=== PATIENT | male | born 1970 | race Caucasian/White ===

== ENCOUNTER 2023-12-27 23:10 | Observation (INO) ==
[2023-12-28] MEDS: SODIUM CHLORIDE 0.9% 1,000 ML IV SCH (00:18)
--- NOTE | 2023-12-28 00:44 | Emergency Department Note ---
Impression & Plan Abdominal pain, Acute appendicitis ED Provider Note ED Provider Note NAME: KANA MUNROE AGE:53 SEX: Male : 1970 ARRIVES VIA: Private vehicle INFORMANT: Patient ED PROVIDER(s): Erlinda Mark DO CHIEF COMPLAINT: Abdominal pain HPI: This is a 53-year-old male presents emergency department due to concern for abdominal pain. Patient states he noticed this evening at home he was feeling unwell and began to develop central abdominal pain across both sides of his abdomen. He states he tried to rest and sip some Mountain Dew. He states he began to notice pain was worse on the right compared to left. He states he feels slightly distended. He denies any recent change in diet or activity, no recent travel, no change in medications. No known sick contacts. He denies fevers or chills, nausea or vomiting. He states early this morning prior to feeling ill he did have a formed stool that appeared [facility] in color compared to normal, no blood was noted. No change in urine. No history of IBS or IBD, no prior abdominal surgeries. PAST MEDICAL HISTORY:See Below PAST SURGICAL HISTORY:See Below FAMILY HISTORY:See Below SOCIAL HISTORY:See Below HOME MEDICATIONS:See Below ALLERGIES:See Below VITALS:See Below PHYSICAL EXAMINATION: GENERAL: alert, well appearing, well nourished, no distress, non-toxic EYE EXAM: normal conjunctiva, PERRL and EOM's grossly intact OROPHARYNX: no exudate, no erythema, lips, buccal mucosa, and tongue normal and mucous membranes are moist NECK: supple, no nuchal rigidity, no adenopathy, non-tender LUNGS: Clear to auscultation. Normal chest wall mechanics, no w/r/r HEART: no murmurs, S1 normal and S2 normal ABDOMEN: abdomen soft, right mid abd tenderness, normo-active bowel sounds, no masses, no rebound or guarding. BACK: Back is symmetrical on inspection and there is no deformity, no midline tenderness, no CVA tenderness. SKIN: no rashes, petechiae, orbruising UPPER EXTREMITIES: upper extremities are grossly normal. FROM, nml pulses b/l. LOWER EXTREMITIES: No pitting edema. FROM, nml pulses b/l. NEURO EXAM: Normal sensorium, cranial nerves II-XII grossly intact, normal speech, no facial droop,nogross weakness of arms, no gross weakness of legs. Gross sensation intact. No ataxia. Vital Signs: reviewed and remarkable Differential Diagnosis: viral syndrome, colitis, appendicitis, renal colic, perf, gi bleed, diverticulitis, sbo, cholecystitis, as well as others were considered MEDICAL DECISION MAKING: This is a 53 yo male who presents to the ER with abdominal pain, right>left which began earlier today. He was afebrile and VS stable. Labs drawn and sent, IV established, EKG performed and interpreted at bedside, and patient placed on telemetry. He was given IVF however denied any medication needed for pain or nausea. He was sent for CT imaging. CAse discussed with Dr. Beckwith in the ER who evaluated the patient at bedside and consented him for surgery. Patient given zosyn preop and was take to the OR. Consultation(s): 0215: Discussed with Dr. Beckwith, gen surg. He evaluated the patient at bedside and will plan to take the patient to the OR. He does request the patient be given zosyn pre operatively. ER Treatment Provided: See below Diagnostics Interpreted By Me: -ECG: sinus bradycardia at 57, nml axis, nml intervals, no acute ST/T wave changes -Cardiac Monitoring: An order was placed for continuous cardiac monitoring. The monitor shows a rate of 56 with sinus bradycardia rhythm. -Laboratory studies: As stated above and show below. -Imaging studies: Ct a/p - no perf, no sbo, ? 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 Required: No Beliefs That Will Affect Care: None Current Living Situation: Spouse Other Information That Helps Us Care for You: No Feels Safe at Home: Yes Safety Concerns: Feels Safe At This Time Assistive Devices: None Allergies Allergies Allergy/AdvReac Type Severity Reaction Status Date / Time No Known Allergies Allergy Unverified 12/28/23 01:06 Home Meds Home Medications Medication Instructions Recorded Confirmed hydrochlorothiazide 12.5 mg tablet 12.5 mg PO DAILY 12/28/23 12/28/23 levothyroxine 125 mcg tablet 125 mcg PO DAILYBB 12/28/23 12/28/23 olmesartan 40 mg tablet 40 mg PO QAM 12/28/23 12/28/23 Previous Rx's Medication Instructions Recorded oxycodone-acetaminophen 5 mg-325 1 tab PO Q6H PRN pain #10 tabs 12/28/23 mg tablet Results & Data (ED) Vital Signs Vital Signs - 24 hr 12/27/23 23:14 12/27/23 23:36 12/27/23 23:39 Temperature 36.6 C Temperature Source Oral Pulse Rate 64 56 L Pulse Rate [Right] 63 Pulse Rhythm [Right] Regular Pulse Strength [Right] Normal Respiratory Rate 18 16 Respiratory Effort / Characteristics Non-Labored Spontaneous Non-Labored Spontaneous Respiratory Depth Normal Normal Respiratory Pattern Regular Regular Blood Pressure 118/85 Blood Pressure [Right Arm] 132/85 Blood Pressure Mean 96 Blood Pressure Mean [Right Arm] 100 Pulse Oximetry 94 97 Oxygen Delivery Method Room Air Room Air Sepsis Recent Fever Within 48 Hours No Sepsis New/Unexplained Change in Mental Status N/A Sepsis Action Taken by Nursing No Action Required Laboratory Data 12/28/23 00:21 12/28/23 00:21 Lab Results 12/28/23 Range/Units 00:21 WBC 10.93 H (4.8-10.8) K/ul RBC 4.89 (4.70-6.10) M/uL Hgb 15.5 (14.0-18.0) g/dl Hct 44.4 (42.0-52.0) % MCV 90.8 (80.0-100.0) fL MCH 31.7 (25.0-34.0) pg MCHC 34.9 (32.0-36.0) g/dL RDW Std Deviation 44.0 (36.4-46.3) fL RDW Coeff of Yovani 13.2 (11.5-14.5) % Plt Count 206 (130-400) K/uL MPV 11.1 (9.4-12.4) fL Immature Gran % (Auto) 0.4 % Neut % (Auto) 61.1 % Lymph % (Auto) 27.0 % [place] % (Auto) 9.4 % Eos % (Auto) 1.6 % Baso % (Auto) 0.5 % Neut # (Auto) 6.67 H (1.40-6.50) K/uL Lymph # (Auto) 2.95 (1.20-3.40) K/uL [place] # (Auto) 1.03 H (0.11-0.59) K/uL Eos # (Auto) 0.18 (0.00-0.50) K/uL Baso # (Auto) 0.06 (0.00-0.20) K/uL Immature Gran # (Auto) 0.04 (0.01-0.20) K/uL Sodium 137 (136-145) mmol/L Potassium 3.7 (3.5-5.1) mmol/L Chloride 103 (98-107) mmol/L Carbon Dioxide 28 (21-32) mmol/L Anion Gap 6 (3-11) BUN 29 H (6-23) mg/dl Creatinine 1.28 (0.6-1.4) mg/dl Est Cr Clr Drug Dosing 86.4 ml/min Est GFR ( Amer) 74.1 ml/min Est GFR (Non-Af Amer) 63.9 ml/min BUN/Creatinine Ratio 22.7 H (10-20) Glucose 106 H (70-99(Fasting)) mg/dl Calcium 9.3 (8.6-10.3) mg/dl Magnesium 1.6 L (1.7-2.4) mg/dl Total Bilirubin 0.4 (0.2-1.0) mg/dl AST 18 (13-39) U/L ALT 18 (7-52) U/L Alkaline Phosphatase 37 (34-104) U/L Total Protein 7.0 (6.0-8.3) gm/dl Albumin 4.3 (3.4-5.0) gm/dl Globulin 2.7 (2.5-4.0) gm/dl Albumin/Globulin Ratio 1.6 (0.9-2) Lipase 18 (11-82) U/L Urine Color Yellow Urine Appearance Clear (Clear) Urine pH 5.5 (4.5-7.5) Ur Specific [place] 1.023 (1.000-1.030) Urine Protein Negative (Negative) Urine Glucose (UA) Negative (Negative) Urine Ketones Negative (Negative) Urine Blood Negative (Negative) Urine Nitrite Negative (Negative) Urine Bilirubin Negative (Negative) Urine Urobilinogen Negative (Negative) Ur Leukocyte Esterase Negative (Negative) Administered Medications Discontinued Medications Bupivacaine HCl/Epinephrine Bitart (Bupivacaine/Epinephrine 0.5% Mpf 1:200,000 30 Ml Vial) Confirm Administered Dose 30 ml .ROUTE .STK-MED ONE Stop: 12/28/23 02:57 Last Admin: 12/28/23 05:47 Dose: Not Given Documented By: IRLANDA Enoxaparin Sodium (Enoxaparin Inj 40 Mg/0.4 Ml Syr) 40 mg SQ Q24H CYNTHIA Stop: 01/27/24 11:59 Last Admin: 12/28/23 12:31 Dose: 40 mg Documented By: ANALIA Sodium Chloride (Nss) 1,000 mls @ 50 mls/hr IV .Q20H CYNTHIA Stop: 01/26/24 23:44 Last Infusion: 12/28/23 10:00 Dose: 50 mls/hr Documented By: Admin: 12/28/23 08:24 Dose: 125 mls/hr Documented By: Infusion: 12/28/23 08:23 Dose: Infused Documented By: Admin: 12/28/23 00:18 Dose: 125 mls/hr Documented By: EUNICE Magnesium Sulfate/Dextrose (Magnesium Sulfate / D5w) 1 gm in 100 mls @ 100 mls/hr IV NOW STA Stop: 12/28/23 02:04 Last Infusion: 12/28/23 03:08 Dose: Infused Documented By: Admin: 12/28/23 01:32 Dose: 100 mls/hr Documented By: EUNICE Piperacillin Sod/Tazobactam Sod (Zosyn) 4.5 gm in 100 mls @ 200 mls/hr IV NOW ONE Stop: 12/28/23 02:55 Last Infusion: 12/28/23 05:47 Dose: Infused Documented By: Admin: 12/28/23 03:03 Dose: 200 mls/hr Documented By: EUNICE Ioversol (Optiray 320 100ml) 100 ml IV ONCE ONE Stop: 12/28/23 01:57 Last Admin: 12/28/23 01:56 Dose: 93 ml Documented By: SALLY Discharge Plan Visit Data Chief Complaint: Abdominal Pain Stated Complaint: ABD PAIN,CHILLS ED Provider: Erlinda Mark Discharge Problem: Abdominal pain, Acute appendicitis Patient Disposition: Admitted As Inpatient Discharge Instructions Interventions: ED Discharge Assessment Last Done: 12/28/23 03:15
[2023-12-28 00:48] LABS: Basophils # (auto) 0.06 K/uL (0.00-0.20); Basophils % (auto) 0.5 %; Eosinophils # (auto) 0.18 K/uL (0.00-0.50); Eosinophils % (auto) 1.6 %; Hematocrit (blood only) 44.4 % (42.0-52.0); Hemoglobin 15.5 g/dl (14.0-18.0); Immature Granulocytes # (auto) 0.04 K/uL (0.01-0.20); Immature Granulocytes % (auto) 0.4 %; Lymphocytes # (auto) 2.95 K/uL (1.20-3.40); Mean Corpuscular Hemoglobin 31.7 pg (25.0-34.0); Mean Corpuscular Hgb Conc 34.9 g/dL (32.0-36.0); Mean Corpuscular Volume 90.8 fL (80.0-100.0); Mean Platelet Volume 11.1 fL (9.4-12.4); Monocytes # (auto) 1.03 K/uL (0.11-0.59); Monocytes % (auto) 9.4 %; Neutrophils # (auto) 6.67 K/uL (1.40-6.50); Neutrophils % (auto) 61.1 %; Platelet Count 206 K/uL (130-400); RDW Coefficient of Variation 13.2 % (11.5-14.5); Red Blood Count 4.89 M/uL (4.70-6.10); White Blood Count 10.93 K/ul (4.8-10.8)
[2023-12-28 00:54] LABS: Albumin Globulin Ratio 1.6 (0.9-2); Albumin Level 4.3 gm/dl (3.4-5.0); BUN Creatinine Ratio 22.7 (10-20); Bilirubin,Total 0.4 mg/dl (0.2-1.0); Calcium 9.3 mg/dl (8.6-10.3); Creatinine Clr Calc Pharmacy 86.4 ml/min; Est GFR (African American) 74.1 ml/min; Est GFR (Non-African American) 63.9 ml/min; Globulin 2.7 gm/dl (2.5-4.0); Magnesium 1.6 mg/dl (1.7-2.4); Potassium 3.7 mmol/L (3.5-5.1)
[2023-12-28] MEDS: MAGNESIUM SULFATE / D5W 1 GM/100 ML BAG IV STA (01:32)
[2023-12-28] MEDS: OPTIRAY 320 100ml IV ONE (01:56)
--- NOTE | 2023-12-28 02:18 | CT Scan Report ---
Exam(s): CT ABDOMEN + PELVIS With Contrast IV Amt: 93 ML OPTIRAY 320 EXAM: CT Abdomen and Pelvis With Intravenous Contrast CLINICAL HISTORY: Reason for exam: right sided abd pain. TECHNIQUE: Axial computed tomography images of the abdomen and pelvis with intravenous contrast. CTDI is 27.41 mGy and DLP is 1557.26 mGy-cm. Automated exposure control was utilized for the study. A dose lowering technique was utilized adhering to the principles of ALARA. CONTRAST: Patient received 93 ML OPTIRAY 320 of IV contrast COMPARISON: No relevant prior studies available. FINDINGS: Lung bases: Unremarkable. ABDOMEN: Liver: Unremarkable. No mass. Gallbladder and bile ducts: Unremarkable. No calcified stones. No ductal dilation. Pancreas: Unremarkable. No mass. No ductal dilation. Spleen: Unremarkable. No splenomegaly. Adrenals: Unremarkable. No mass. Kidneys and ureters: Unremarkable. No solid mass. No hydronephrosis. Stomach and bowel: Sigmoid diverticula without diverticulitis. No bowel obstruction. PELVIS: Appendix: Dilated, fluid-filled, inflamed appendix measuring up to 9.5 mm consistent with uncomplicated acute appendicitis. Bladder: Unremarkable. No mass. Reproductive: Mild prostatomegaly. Surgical clip in the right scrotal region. ABDOMEN and PELVIS: Intraperitoneal space: Unremarkable. No significant ascites. No free air. No abscess. Bones/joints: No acute fracture. No dislocation. Soft tissues: Containing umbilical hernia. Vasculature: Unremarkable. No abdominal aortic aneurysm. Lymph nodes: Unremarkable. No enlarged lymph nodes. IMPRESSION: Dilated, fluid-filled, inflamed appendix measuring up to 9.5 mm consistent with uncomplicated acute appendicitis. No free air or abscess. Communications: Verify Receipt Electronically signed by: Liz Kat M.D. 12/28/23 02:17 AM
--- NOTE | 2023-12-28 02:40 | Anesthesiology Consultation ---
Date of Service December 28, 2023 Assessment & Plan (1) Encounter for pre-operative examination: Chart Review Chart Review: Patient NOT seen in Pre Admission Testing urggent p Consults Requested none History Height/Weight Height: 6 ft Weight: 109.9 kg Allergies Allergy/AdvReac Type Severity Reaction Status Date / Time No Known Allergies Allergy Unverified 12/28/23 01:06 Medications Home Medications Medication Instructions Recorded Confirmed Last Taken hydrochlorothiazide 12.5 mg tablet 12.5 mg PO DAILY 12/28/23 12/28/23 Unknown levothyroxine 125 mcg tablet 125 mcg PO DAILYBB 12/28/23 12/28/23 Unknown olmesartan 40 mg tablet 40 mg PO QAM 12/28/23 12/28/23 Unknown Active Medications Generic Name Dose Route Start Last Admin Trade Name Freq PRN Reason Stop Dose Admin Sodium Chloride 1,000 mls @ 125 mls/hr 12/27/23 23:45 12/28/23 00:18 Nss IV 01/26/24 23:44 125 mls/hr .Q8H CYNTHIA Administration Social History Smoking Status: Never smoker Physical Exam Vital Signs Last Vital Signs Temp 97.9 F 12/27/23 23:14 Pulse 63 12/27/23 23:39 Resp 16 12/27/23 23:39 BP 132/85 12/27/23 23:39 Pulse Ox 97 12/27/23 23:39 O2 Del Method Room Air 12/27/23 23:39 Testing Laboratory Results 12/28/23 00:21 12/28/23 00:21
[2023-12-28] MEDS ORDERED: ONDANSETRON INJ 2 MG/ML 2 ML VIAL IV PRN ×2 (02:42→05:10)
[2023-12-28] MEDS ORDERED: ePHEDrine sulfate 50 MG/ML AMP IV PRN (02:42)
[2023-12-28] MEDS ORDERED: ATROPINE SULFATE 0.1 MG/ML 10ML SYR IV PRN (02:42)
[2023-12-28] MEDS ORDERED: fentaNYL citrate PF 100 MCG/2 ML VIAL IV PRN (02:42)
--- NOTE | 2023-12-28 02:42 | History & Physical Report ---
Date of Service December 28, 2023 Assessment & Plan (1) Acute appendicitis: Plan 54-year-old gentleman presents with acute appendicitis. We discussed the risks and benefits of a laparoscopic appendectomy. All his questions were answered. Will take him to the operating room at the earliest convenience. History of Present Illness Primary Care Provider: NO PCP 53-year-old gentleman presents with a 1 day history of upper abdominal pain radiating to the right lower quadrant. Is been worsening all day. He did have nausea. He last ate at 2 PM. 3-year constipation. He did have chills associated with the pain. No fevers. CT Demonstrates acute appendicitis. Allergies Allergy/AdvReac Type Severity Reaction Status Date / Time No Known Allergies Allergy Unverified 12/28/23 01:06 Home Medications Medication Instructions Recorded Confirmed Type hydrochlorothiazide 12.5 mg tablet 12.5 mg PO DAILY 12/28/23 12/28/23 History levothyroxine 125 mcg tablet 125 mcg PO DAILYBB 12/28/23 12/28/23 History olmesartan 40 mg tablet 40 mg PO QAM 12/28/23 12/28/23 History Past Med/Surg History Problem List (Updated 12/28/23 @ 02:43 by Kameron Beckwith MD) Acute appendicitis Encounter for pre-operative examination Abdominal pain (Acute) Social History Smoking Status: Never smoker Preferred Language: Somali Feels Safe at Home: Yes Review of Systems Review of Systems: All systems reviewed & are unremarkable except as noted in HPI & below Physical Exam Constitutional: WD/WN, vitals as above Eyes: PERRL, conjunctivae normal, anicteric sclerae Neck: trachea midline, no thyromegaly Respiratory: normal respiratory effort; no respiratory distress and no labored breathing Cardiovascular: Rate/Rhythm: regular rate and regular rhythm Gastrointestinal (Abdomen): Inspection/Auscultation: abdomen normal to inspection; abdomen not distended Percussion/Palpation: + abdomen tender ( RLQ) and abdomen soft; no guarding and abdomen not rigid Skin: no rashes, warm and dry Psychiatric: A+Ox3, euthymic affect Results & Data Results & Data Vital Signs (Past 12 Hours) Vital Signs Temp Pulse Pulse Resp BP BP Pulse Ox 12/27/23 23:39 63 16 132/85 97 12/27/23 23:36 56 L 12/27/23 23:14 36.6 C 64 18 118/85 94 O2 Del Method 12/27/23 23:39 Room Air 12/27/23 23:36 12/27/23 23:14 Room Air Laboratory Results 12/28/23 Range/Units 00:21 WBC 10.93 H (4.8-10.8) K/ul RBC 4.89 (4.70-6.10) M/uL Hgb 15.5 (14.0-18.0) g/dl Hct 44.4 (42.0-52.0) % MCV 90.8 (80.0-100.0) fL MCH 31.7 (25.0-34.0) pg MCHC 34.9 (32.0-36.0) g/dL RDW Std Deviation 44.0 (36.4-46.3) fL RDW Coeff of Yovani 13.2 (11.5-14.5) % Plt Count 206 (130-400) K/uL MPV 11.1 (9.4-12.4) fL Immature Gran % (Auto) 0.4 % Neut % (Auto) 61.1 % Lymph % (Auto) 27.0 % [place] % (Auto) 9.4 % Eos % (Auto) 1.6 % Baso % (Auto) 0.5 % Neut # (Auto) 6.67 H (1.40-6.50) K/uL Lymph # (Auto) 2.95 (1.20-3.40) K/uL [place] # (Auto) 1.03 H (0.11-0.59) K/uL Eos # (Auto) 0.18 (0.00-0.50) K/uL Baso # (Auto) 0.06 (0.00-0.20) K/uL Immature Gran # (Auto) 0.04 (0.01-0.20) K/uL Sodium 137 (136-145) mmol/L Potassium 3.7 (3.5-5.1) mmol/L Chloride 103 (98-107) mmol/L Carbon Dioxide 28 (21-32) mmol/L Anion Gap 6 (3-11) BUN 29 H (6-23) mg/dl Creatinine 1.28 (0.6-1.4) mg/dl Est Cr Clr Drug Dosing 86.4 ml/min Est GFR ( Amer) 74.1 ml/min Est GFR (Non-Af Amer) 63.9 ml/min BUN/Creatinine Ratio 22.7 H (10-20) Glucose 106 H (70-99(Fasting)) mg/dl Calcium 9.3 (8.6-10.3) mg/dl Magnesium 1.6 L (1.7-2.4) mg/dl Total Bilirubin 0.4 (0.2-1.0) mg/dl AST 18 (13-39) U/L ALT 18 (7-52) U/L Alkaline Phosphatase 37 (34-104) U/L Total Protein 7.0 (6.0-8.3) gm/dl Albumin 4.3 (3.4-5.0) gm/dl Globulin 2.7 (2.5-4.0) gm/dl Albumin/Globulin Ratio 1.6 (0.9-2) Lipase 18 (11-82) U/L Diagnostic Findings ADDENDUM ADDENDUM: 12/28/23 02:23 Verify Receipt Verified receipt with RASHIDA Moreira report to Dr. Mark on 12/27 02:23 (-04:00) Electronically signed by: Liz Kat M.D. Electronically signed by: Liz Kat M.D. 12/28/23 02:17 AM ADDENDUM END Exam(s): CT ABDOMEN + PELVIS With Contrast IV Amt: 93 ML OPTIRAY 320 EXAM: CT Abdomen and Pelvis With Intravenous Contrast CLINICAL HISTORY: Reason for exam: right sided abd pain. TECHNIQUE: Axial computed tomography images of the abdomen and pelvis with intravenous contrast. CTDI is 27.41 mGy and DLP is 1557.26 mGy-cm. Automated exposure control was utilized for the study. A dose lowering technique was utilized adhering to the principles of ALARA. CONTRAST: Patient received 93 ML OPTIRAY 320 of IV contrast COMPARISON: No relevant prior studies available. FINDINGS: Lung bases: Unremarkable. ABDOMEN: Liver: Unremarkable. No mass. Gallbladder and bile ducts: Unremarkable. No calcified stones. No ductal dilation. Pancreas: Unremarkable. No mass. No ductal dilation. Spleen: Unremarkable. No splenomegaly. Adrenals: Unremarkable. No mass. Kidneys and ureters: Unremarkable. No solid mass. No hydronephrosis. Stomach and bowel: Sigmoid diverticula without diverticulitis. No bowel obstruction. PELVIS: Appendix: Dilated, fluid-filled, inflamed appendix measuring up to 9.5 mm consistent with uncomplicated acute appendicitis. Bladder: Unremarkable. No mass. Reproductive: Mild prostatomegaly. Surgical clip in the right scrotal region. ABDOMEN and PELVIS: Intraperitoneal space: Unremarkable. No significant ascites. No free air. No abscess. Bones/joints: No acute fracture. No dislocation. Soft tissues: Containing umbilical hernia. Vasculature: Unremarkable. No abdominal aortic aneurysm. Lymph nodes: Unremarkable. No enlarged lymph nodes. IMPRESSION: Dilated, fluid-filled, inflamed appendix measuring up to 9.5 mm consistent with uncomplicated acute appendicitis. No free air or abscess. (1) Acute appendicitis Acute appendicitis type: with localized peritonitis Appendicitis gangrene presence: without gangrene Appendicitis perforation presence: without perforation Appendicitis abscess presence: without abscess Qualified Code(s): K35.30 - Acute appendicitis with localized peritonitis, without perforation or gangrene
[2023-12-28] MEDS ORDERED: ONDANSETRON INJ 2 MG/ML 2 ML VIAL ONE (02:48)
[2023-12-28] MEDS ORDERED: SUCCINYLCHOLINE CHLORIDE 20 MG/ML 10 ML VIAL IV ONE (02:48)
[2023-12-28] MEDS ORDERED: MIDAZOLAM HCL 1 MG/ML 2ML VIAL ONE (02:48)
[2023-12-28] MEDS ORDERED: LIDOCAINE 2% 2 ML VIAL/AMP(20MG/ML) INFIL ONE (02:48)
[2023-12-28] MEDS ORDERED: PROPOFOL IV EMULSION 10 MG/ML 20 ML VIAL IV ONE (02:48)
[2023-12-28] MEDS ORDERED: fentaNYL citrate PF 100 MCG/2 ML VIAL ONE ×2 (02:48)
[2023-12-28] MEDS ORDERED: ROCURONIUM BROMIDE 10 MG/ML 5 ML VIAL IV ONE (02:48)
[2023-12-28] MEDS ORDERED: DEXAMETHASONE SOD INJ 4 MG/ML VIAL ONE (02:48)
[2023-12-28] MEDS ORDERED: SUGAMMADEX SODIUM 200 MG/2 ML VIAL IV ONE ×2 (02:49→04:20)
[2023-12-28] MEDS: PIPERACILLIN/TAZOBACTAM 4.5 GM/100 ML BAG IV ONE (03:03)
--- NOTE | 2023-12-28 04:14 | Operative Report ---
Post Operative Report Pre & Post Diagnosis Operation Date: 12/28/23 02:50 Pre-Op Diagnosis: Acute appendicitis Post-Op Diagnosis: Acute appendicitis I identified the patient and participated in the time-out.: Yes Procedure Operation Date: 12/28/23 02:50 Actual Procedures p Laparoscopic Appendectomy(Not Applicable) - Kameron Beckwith MD Surgeon Kameron Beckwith MD Apparel Machinery Instructor None Estimated Blood Loss 5 Findings Consistent with Post-Op Diagnosis acute appendicitis, no perforation Specimens appendix Drains none Anesthesia Type General Complications none Description of Procedure the patient was taken to the operating room, and placed supine on the operating table. A timeout was performed, perioperative antibiotics were administered, SCD boots were placed. After adequate anesthesia and analgesia was obtained, the abdomen was prepped and draped in the normal sterile fashion. A 1 cm incision was made in the supraumbilical region and carried down to the level of the fascia. A trach hook was used to grasp the fascia and elevated and a varies needle was used to enter the abdominal cavity. The abdomen was insufflated to a pressure of 15 mmHg, and a 5 mm trocar was placed in this location. A 5 mm 30 degree laparoscope was placed into the abdominal cavity, and the abdomen was surveyed. The patient was placed in Trendelenburg and slightly to the left. One 5 mm trocar was placed in the right upper quadrant, and one 12 mm trocar was placed in the left lower quadrant under direct visualization. The right colon was identified and traced down to the cecum. The appendix was identified and elevated anteriorly and medially. A window was created at the base of the appendix with a [place] dissector. The Endo JARROD stapler was used to transect the appendix at its base through noninflamed tissue, and subsequently the mesoappendix. The appendix was placed in an Endo Catch bag, and removed via the left lower quadrant port site. Attention was turned to hemostasis, which was excellent. The abdomen was copiously irrigated and suctioned free, and again hemostasis was found to be excellent. All trochars removed under direct visualization. The abdomen was desufflated. The fascia in the 12 mm port site was closed with a 0 Vicryl suture. The skin was closed with a running 4-0 Monocryl subcuticular stitch. Dermabond was applied. The patient tolerated the procedure without complication, and was transferred in stable condition to the PACU. All instrument, needle, and sponge counts were correct at the end of the case. I attest to the content of the Intraoperative Record and any orders documented therein. Any exceptions are noted below.
--- OUTSIDE RECORDS SUMMARY | 2023-12-28 04:14 | External Medical Summary | Summary of Care ---
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 Role Phone Unavailable Primary Care Provider Unavailabl e Reason for Referral * Evaluate & Treat - Unlimited Visits (Within 30 days (routine)) - Authorized Specialty Diagnoses / Procedures Referred By Segundo marley Referred To Contact Neurology Diagnoses Tongue fasciculation Tongue sore Yasir Blake MD [address] [place] [address] Referral ID Status Reason Start Date Expiration Date Visits Requested Visits Authorized [id number] Authorized Specialty Services Required 11/19/[phone] Question Answer Referral Priority Within 30 days (routine) Where should this appointment be scheduled? [facility] Is this referral being placed for insurance purposes ONLY No, patient needs appointment [facility] REFERRAL QUESTIONS Other Conditions Comments Tongue fasciculations with muscle soreness and weakness concerning for hypoglossal nerve issue * Evaluate & Treat - Unlimited Visits (Within 30 days (routine)) - Authorized Specialty Diagnoses / Procedures Referred By Segundo marley Referred To Contact Sleep Medicine / Sleep Disorders Diagnoses Obstructive sleep apnea of adult Yasir Blake MD [address] [place] [address] Referral ID Status Reason Start Date Expiration Date Visits Requested Visits Authorized [id number] Authorized Specialty Services Required 11/19/2023 2 2 Question Answer Referral Priority Within 30 days (routine) Where should this appointment be scheduled? [facility] SLEEP MED ADULT REFERRAL Sleep Apnea Testing and Management Does the patient snore and/or gasp at night or has been told they stop breathing at night? Yes, document patient's symptoms in progress note Comments Known KRISTINE - just needs a visit to establish and adjust machine and settings as needed Reason for Visit * Reason Comments Physical-Exam Pt being seen for CP E today, and establish care, has had issue with chewing and tongue getting tired and wants a referral to Neuro. He also needs to establish with doctor for CPAP supplies, has not seen any one in some time. Encounter Details Date Type Department Care Team (Late st Contact Info) Description 11/19/2023 7:40 AM EDT Office Visit Family [facility] [address] [place] [address] Yasir Blake MD [address] [place] [address] Encounter for general adult medical examination with abnormal findings*; Obstructive sleep apnea of adult; Essential hypertension; Hypothyroidism due to acquired atrophy of thyroid; Tongue fasciculation; Tongue sore; Screening for prostate cancer; Polyp of colon, unspecified part of colon, unspecified type Allergies Active Allergy Reactions Criticality Noted Date Comments Cashew Nut Oil 10/12/2005 Patient had allergic reaction to cashews Ragweed 03/15/2012 rhinitis documented as of this encounter (statuses as of 11/19/2023) Medications Medication Sig Dispensed Refills Start Date End Date Status CPAP every night at bedtime. Active Olmesartan Medoxomil 40 MG Oral Tablet (Benicar) Take 1 Tablet by mouth in the morning. 90 Tablet 3 11/19/2023 Active Levothyroxine Sodium 125 MCG Oral Tablet (Levoxyl) Take 1 Tablet by mouth in the morning. 90 Tablet 3 11/19/2023 Active hydroCHLOROthiazi de 12.5 MG Oral Tablet Take 1 Tablet by mouth in the morning. 90 Tablet 3 11/19/2023 Active levothyroxine (LEVOXYL) 100 MCG TabletIndications :Hypothyroidism due to acquired atrophy of thyroid TAKE 1 TABLET BY MOUTH ONCE DAILY AT LEAST 30 MINUTES BEFORE BREAKFAST OR OTHER MEDICATIONS. 90 Tab 3 06/16/2018 11/19/2023 Discontinue d(Medicatio n/Dose Changed) fluticasone (FLONASE) 50 MCG/ACT nasal spray Administer 2 Sprays into each nostril 2 times a day. 1 Bottle 5 07/08/2018 11/19/2023 Discontinue d(Patient preference/ discontinua tion) Sildenafil Citrate 50 MG TabletIndications :Erectile dysfunction, unspecified erectile dysfunction type TAKE 1 TABLET ONCE FOR 1 DOSE 1 TO 4 HOURS BEFORE INTERCOURSE. NOMORE THAN 1DOSE IN 24 HOURS 18 Tab 1 12/05/2018 11/19/2023 Discontinue d(Patient preference/ discontinua tion) Levothyroxine Sodium 125 MCG Oral Tablet (Levoxyl) Take 1 Tablet by mouth in the morning. 09/15/2023 11/19/2023 Discontinue d(Refill) Olmesartan Medoxomil 40 MG Oral Tablet (Benicar) Take 1 Tablet by mouth in the morning. 11/03/2023 11/19/2023 Discontinue d(Refill) hydroCHLOROthiazi de 12.5 MG Oral Tablet Take 1 Tablet by mouth in the morning. 11/19/2023 Discontinue d(Refill) documented as of this encounter (statuses as of 11/19/2023) Active Problems Problem Noted Date Diagnosed Date Essential hypertension 11/19/2023 Obstructive sleep apnea of adult 11/19/2023 Hypothyroidism 03/15/2012 Other allergic rhinitis 04/17/2010 Overview: ICD-10 update of inactive term FOOD ALLERGY - ALLERGIC REACTION TREE NUTS 04/17 Overview: cashew - rash, hives by history skin test - negative ADVANCE DIRECTIVE INFORMATION 10/12/2005 Overview: No, Advance Directive brochure given to patient at prior appointment. Dyslipidemia, goal LDL below 160 documented as of this encounter (statuses as of 11/19/2023) Resolved Problems Problem Noted Date Diagnosed Date Resolved Date Other acne 11/11/2001 03/15/2012 Sebaceous cyst 11/11/2001 03/15/2012 Other specified disease of h air and hair follicles 11/11/2001 03/15/2012 Other allergic rhinitis 12/08/200003/27 Overview: ICD-10 update of inactive term Male infertility 03/15/2012 ABN LIVER FUNCTION STUDY Other specified forms of hearing loss 03/15/2012 documented as of this encounter (statuses as of 11/19/2023) Immunizations Name Administration Dates Next Due HEP A - Hepatitis A (Adult > 18 yrs) 04/07/2011 Seasonal Influenza, PF, 6 M & above, IM , (FluLaval or Fluzone) 03/12/2018,03/13/2017 Seasonal Influenza, Quadriva lent, No Preserve, IM 03/14/2016,03/09/2015 Seasonal Influenza, Split, I IV3, With Preserve, Inj 03/26/2014,03/20/2013,03/15/2012, 010 TDAP, Age 7 and older, IM (Adacel) 03/24/2010 documented as of this encounter Social History Tobacco Use Types Packs/Day Years Used Date Smoking Tobacco: Never Smokeless Tobacco: Never Tobacco Cessation:Counseling Given: Not Answered Comments:no passive smoke Alcohol Use Standard Drinks/Week Comments Yes 0 (1 standard drink = 0.6 oz pur e alcohol) socially AUDIT-C Answer Date Recorded Frequency of Alcohol Consumption 2-4 times a wed05/18/2018 Average Number of Drinks 1 or 2 019 Frequency of Binge Drinking Never 04/27 PHQ-2 Answer Date Recorded PHQ-2 Score 0 02/27/2018 Utilities Answer Date Recorded Do you have trouble paying y our heating, water, or electric bill? (Adult - for ages 18 years and over) Not on file 10/12/2023 Is your family able to pay t he heat, water, or electric bill? (Household - for ages 0-17 years) Not on file 10/12/2023 Does your family have access to good internet? (Household - for ages 0-17 years) Not on file 10/12/2023 Social Connections Answer Date Recorded How often do you feel lonely or isolated from those around you? (Adult - for ages 18 years and over) Not on file 10/12/2023 Sex and Gender Information Value Date Recorded Sex Assigned at Not on file Gender Identity Not on file Sexual Orientation Not on file documented as of this encounter Last Filed Vital Signs Vital Sign Reading Time Taken Comments Blood Pressure 100/72 11/19/2023 7:31 AM EDT Pulse 60 11/19/2023 7:31 AM EDT Temperature 37 C (98.6 F) 11/19/2023 7:31 AM EDT Respiratory Rate 16 11/19/2023 7:31 AM EDT Oxygen Saturation - - Inhaled Oxygen Concentration - - Weight 109.3 kg (241 lb) 11/19/2023 7:31 AM EDT Height 182.9 cm (6') 11/19/2023 7:31 AM EDT Body Mass Index 32.69 11/19/2023 7:31 AM EDT documented in this encounter Progress Notes * Yasir Blake MD - 11/19/2023 7:51 AM EDT Images from the original note were not included. History of Present Illness Mehul Carrillo is a 53 year old male that presents for Physical-Exam (Pt being seen for CPE today, and establish care, has had issue with chewing and tongue getting tired and wants a referral to Neuro. He also needs to establish with doctor for CPAP supplies, has not seen any one in some time.) Patient formerly of Dr Dooley. 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 He has had sleep apnea for some years and uses his CPAP (variable pressure) regularly at night whenhe is home. Doesn't always use it when away from home. In the past year he has been having some soreness and discomfort with his tongue. This occurs with prolonged chewing and moving food around in his mouth. He has no swallowing issue. No other muscle issues. He had some workup in [place] and had imaging (MRI brain) and some lab work done all of which was reassuring. He was set to see neurology there but then moved back here Physical Exam BP 100/72 | Pulse 60 | Temp 37 C (98.6 F) (Tympanic) | Resp 16 | Ht 1.829 m (6') | Wt 109.3 kg (241 lb) | BMI 32.69 kg/m | BSA 2.36 m AAOx3 Normal affect NCAT/ PERRL Mild tongue fasciculation when tongue fully extended - full ROM with side to side movement No tongue lesion No atrophy of muscle No abnormal papillae seen Neck supple Throat clear RRR Lungs CTABL Abd soft +BS Ext warm and well perfused No gross neuro deficits Normal gait I have reviewed most recent labs None Assessment and Plan Encounter for general adult medical examination with abnormal findings - new patient. Yearly. Update labs. Obstructive sleep apnea of adult - referred to sleep medicine for adjustment of machine/supplies. Essential hypertension - good control. Meds refilled. Update labs Hypothyroidism due to acquired atrophy of thyroid - cont synthroid. Rx sent. Update labs. Screening prostate cancer - check PSA Screening colon cancer - colo done last year in [place]. He will get us records. Had some polyps and told to repeat in 3 years (would be due in 2025). Tongue fasciculation/soreness - I have some concern for a hypoglossal nerve issue here, though perhaps more likely is the variable pressure of the CPAP causing his tongue to move throughout sleep so the muscles are essentially fatigued or aching as a result of moving all night (easier to say this as he's had a negative workup to this point). After discussion I agree seeing neurology is reasonable at this point. Referral made. Wrap-Up Check labs Referred to neurology and sleep medicine 6 months prn sooner Time: I spent a total of 30-39 minutes (exact time 33 mins) on the date of service in preparation, delivery, and documentation of the care provided to Mehul Carrillo excluding any time spent in the performance of separately billed services. documented in this encounter Plan of Treatment Upcoming Encounters Date Type Department Care Team (Late st Contact Info) Description 11/22/2023 8:00 AM EDT Office Visit [facility] [address] [facility] [place] [address] Steffanie Cherry PA-C [address] [facility] [place] [address] 02/15/2024 7:30 AM EDT Office Visit Sleep Disorders Ctr [facility] [address] [place] [phone] Jazzmine Cesar CRNP [address] [place] [address] 05/23/2024 7:00 AM EST Office Visit Family Practice [facility] [address] [place] [address] Yasir Blake MD [address] [place] [address] Pending Results Name Type Priority Associated Diagnoses Date /Time PSA Lab Routine Screening for prostate cancer 11/19/2023 8:28 AM EDT LIPID PANEL WITH DIRECT LDL IF TG IS HIGH Lab Routine Encounter for general adult medical examination with abnormal findings 11/19/2023 8:28 AM EDT COMPREHENSIVE METABOLIC PANEL Lab Routine Essential hypertension 11/19/2023 8:28 AM EDT CBC WITH WBC DIFFERENTIAL Lab Routine Obstructive sleep apnea of adult 11/19/2023 8:28 AM EDT TSH WITH FREE T4 IF INDICATED Lab Routine Hypothyroidism due to acquired atrophy of thyroid 11/19/2023 8:28 AM EDT Scheduled Orders Name Type Priority Associated Diagnoses Orde r Schedule PSA Lab Routine Screening for prostate cancer Expected: 11/19/2023 (Approximate), Expires: 11/18/2024 LIPID PANEL WITH DIRECT LDL IF TG IS HIGH Lab Routine Encounter for general adult medical examination with abnormal findings Expected: 11/19/2023, Expires: 11/18/2024 COMPREHENSIVE METABOLIC PANEL Lab Routine Essential hypertension Expected: 11/19/2023 (Approximate), Expires: 11/18/2024 CBC WITH WBC DIFFERENTIAL Lab Routine Obstructive sleep apnea of adult Expected: 11/19/2023 (Approximate), Expires: 11/18/2024 TSH WITH FREE T4 IF INDICATED Lab Routine Hypothyroidism due to acquired atrophy of thyroid Expected: 11/19/2023 (Approximate), Expires: 11/18/2024 Scheduled Referrals Name Type Priority Associated Diagnoses Orde r Schedule SLEEP MEDICINE REFERRAL OP Referral Within 30 days (routine) Obstructive sleep apnea of adult Ordered: 11/19/2023 ADULT NEUROLOGY REFERRAL OP Referral Within 30 days (routine) Tongue fasciculation Tongue sore Ordered: 11/19/2023 Health Maintenance Due Date Last Done Comments HIV Screening 1986 Albumin/Creatinine Ratio 1989 Hepatitis B Vaccine (1 of 3 - 19+ 3-dose series) 1990 Cologuard 2016 Colonoscopy 2016 Colorectal Cancer Screening 2016 Fecal Occult Blood Test 2016 Sigmoidoscopy 2016 Depression Screening 05/18/2019 05/18/2018 GFR 05/18/2019 05/18/2018, 04/26, 05/08/2016, Additional history exists TSH 05/18/2019 05/18/2018, 04/26, 05/08/2016, Additional history exists DTaP,Tdap,and Td Vaccines (2 - Td or Tdap) 03/24/2020 03/24/2010 Zoster Vaccines (1 of 2) 2021 Diabetes Screening 05/18/2021 05/18/2018, 0 05/11/2017, 05/08/2016, Additional history exists COVID-19 Vaccine ( - 2022-24 season) 2022 Lipid Panel 05/18/2023 05/18/2018, 04/26, 05/08/2016, Additional history exists Influenza Vaccine (FLU shot) (#1) 2023 03/12/2018, 03/13/2017, 03/14/2016, Additional history exists HPV (Gardasil) Vaccine Aged Out No lo nger eligible based on patient's age to complete this topic MENINGOCOCCAL (MENACTRA/MENVEO) Aged Out No longer eligible based on patient's age to complete this topic Pneumococcal Vaccine: Pediatrics (0 to 5 Years) and At-Risk Patients (6 to 64 Years) Aged Out No longer eligible based on patient's age to complete this topic documented as of this encounter Medical Devices Not on filedocumented as of this encounter Visit Diagnoses Diagnosis Encounter for general adult medical examination with abnormal findings- Primary Unspecified general medical examination Obstructive sleep apnea of adult Obstructive sleep apnea (adult) (pediatric) Essential hypertension Unspecified essential hypertension Hypothyroidism due to acquired atrophy of thyroid Tongue fasciculation Abnormal involuntary movements Tongue sore Glossodynia Screening for prostate cancer Special screening for malignant neoplasm of prostate Polyp of colon, unspecified part of colon, unspecified type documented in this encounter"
--- OUTSIDE RECORDS SUMMARY | 2023-12-28 04:14 | External Medical Summary | Summary of Care ---
Author Name Unknown Organization [facility] Address [address] [facility] [place] [address] Phone [phone] Care Team Providers Care Environmental Professional Name Role Phone Unavailable Primary Care Provider Unavailabl e Reason for Visit * Reason Comments NEW PATIENT Other Muscle weakness in t ongue x 7 mnths * Evaluate & Treat - Unlimited Visits (Within 30 days (routine)) - Authorized Specialty Diagnoses / Procedures Referred By Segundo marley Referred To Contact Neurology Diagnoses Tongue fasciculation Tongue sore Yasir Blake MD [address] [place] [address] Referral ID Status Reason Start Date Expiration Date Visits Requested Visits Authorized [id number] Authorized Specialty Services Required 11/19/[phone] Encounter Details Date Type Department Care Team (Late st Contact Info) Description 11/22/2023 8:00 AM EDT [facility] [address] [facility] [place] [address] Steffanie Cherry PA-C [address] [facility] [place] [address] Injury of hypoglossal nerve, unspecified laterality, subsequent encounter*; Muscle cramping Allergies Active Allergy Reactions Criticality Noted Date Comments Cashew Nut Oil 10/12/2005 Patient had allergic reaction to cashews Ragweed 03/15/2012 rhinitis documented as of this encounter (statuses as of 11/22/2023) Medications Medication Sig Dispensed Refills Start Date End Date Status CPAP every night at bedtime. Active Olmesartan Medoxomil 40 MG Oral Tablet (Benicar) Take 1 Tablet by mouth in the morning. 90 Tablet 3 11/19/2023 Active Levothyroxine Sodium 125 MCG Oral Tablet (Levoxyl) Take 1 Tablet by mouth in the morning. 90 Tablet 3 11/19/2023 Active hydroCHLOROthiazide 12.5 MG Oral Tablet Take 1 Tablet by mouth in the morning. 90 Tablet 3 11/19/2023 Active documented as of this encounter (statuses as of 11/22/2023) Active Problems Problem Noted Date Diagnosed Date [...] as of this encounter (statuses as of 11/22/2023) Resolved Problems Problem Noted Date Diagnosed Date Resolved Date Other acne 11/11/2001 03/15/2012 Sebaceous cyst 11/11/2001 03/15/2012 Other specified disease of h air and hair follicles 11/11/2001 03/15/2012 Other allergic rhinitis 12/08/200003/27 Overview: ICD-10 update of inactive term Male infertility 03/15/2012 ABN LIVER FUNCTION STUDY Other specified forms of hearing loss 03/15/2012 documented as of this encounter (statuses as of 11/22/2023) Immunizations Name Administration Dates Next Due HEP [...] Date Smoking Tobacco: Never Smokeless Tobacco: Never Comments:no passive smoke Alcohol Use Standard Drinks/Week [...] Sign Reading Time Taken Comments Blood Pressure 126/80 11/22/2023 8:02 AM EDT Pulse 68 11/22/2023 8:02 AM EDT Temperature 36.6 C (97.9 F) 11/22/2023 8:02 AM ED T Respiratory Rate 16 11/22/2023 8:02 AM EDT Oxygen Saturation 94% 11/22/2023 8:02 AM EDT Inhaled Oxygen Concentration - - Weight 112.4 kg (247 lb 11.2 oz) 11/22/2023 8:02 AM EDT Height - - Body Mass Index 33.59 11/19/2023 7:31 AM EDT documented in this encounter Nursing Notes * Joslyn Harper, MED ASSIST - 11/22/2023 8:02 AM EDT Chief Complaint Patient presents with NEW PATIENT Other Muscle weakness in tongue x 7 mnths documented in this encounter Plan of Treatment Upcoming Encounters Date Type Department Care Team (Late st Contact Info) Description 12/15/2023 8:00 AM EDT NeuroDiagnostic Study Neurophysiology [facility] [address] [place] [address] Jayy Rodgers MD [address] [facility] [place] [address] 02/15/2024 7:30 AM EDT Office Visit Sleep Disorders Ctr [facility] [address] [place] [phone] Jazzmine Cesar CRNP [address] [place] [address] 05/10/2024 8:00 AM EST Office Visit Neurology [facility] [address] [place] [address] Neville Roberts, [address] [facility] [place] [address] 05/23/2024 7:00 AM EST Office Visit Family Practice [facility] [address] [place] [address] Yasir Blake MD [address] [place] [address] Health Maintenance Due Date Last Done Comments HIV Screening 1986 Albumin/Creatinine Ratio 1989 Hepatitis B Vaccine (1 of 3 - 19+ 3-dose series) 1990 Cologuard 2016 Colonoscopy 2016 Colorectal Cancer Screening 2016 Fecal Occult Blood Test 2016 Sigmoidoscopy 2016 Depression Screening 05/18/2019 05/18/2018 DTaP,Tdap,and Td Vaccines (2 - Td or Tdap) 03/24/2020 03/24/2010 Zoster Vaccines (1 of 2) 2021 COVID-19 Vaccine (1 - season) 2022 Influenza Vaccine (FLU shot) (#1) 2023 03/12/2018, 03/13/2017, 03/14/2016, Additional history exists GFR 11/18/2024 11/19/2023, 04/27, 05/11/2017, Additional history exists TSH 11/18/2024 11/19/2023, 04/27, 05/11/2017, Additional history exists Diabetes Screening 11/18/2026 11/19/2023, 0 05/18/2018, 05/11/2017, Additional history exists Lipid Panel 11/18/2028 11/19/2023, 04/27, 05/11/2017, Additional history exists HPV (Gardasil) Vaccine Aged [...] as of this encounter Visit Diagnoses Diagnosis Injury of hypoglossal nerve, unspecified laterality, subsequent encounter- Primary Muscle cramping documented in this encounter
--- OUTSIDE RECORDS SUMMARY | 2023-12-28 04:14 | External Medical Summary | Summary of Care ---
Author Name Unknown Organization [facility] Address [address] [facility] [place] [address] Phone [phone] Care Team Providers Care Daytime Caregiver Name Role Phone Unavailable Primary Care Provider Unavailabl e Reason for Visit * Reason Onset Date Comments Test Results 12/19/2023 Encounter Details Date Type Department Care Team (Late st Contact Info) Description 12/19/2023 Telephone Family Practice [facility] [address] [place] [address] Yasir Blake MD [address] [place] [address] Test Results Allergies Active Allergy Reactions Criticality Noted Date Comments Cashew Nut Oil 10/12/2005 Patient had allergic reaction to cashews Ragweed 03/15/2012 rhinitis documented as of this encounter (statuses as of 12/19/2023) Medications Medication Sig Dispensed Refills Start Date [...] as of this encounter (statuses as of 12/19/2023) Active Problems Problem Noted Date Diagnosed Date [...] as of this encounter (statuses as of 12/19/2023) Resolved Problems Problem Noted Date Diagnosed Date Resolved Date Other acne 11/11/2001 03/15/2012 Sebaceous cyst 11/11/2001 03/15/2012 Other specified disease of h air and hair follicles 11/11/2001 03/15/2012 Other allergic rhinitis 12/08/200003/27 Overview: ICD-10 update of inactive term Male infertility 03/15/2012 ABN LIVER FUNCTION STUDY Other specified forms of hearing loss 03/15/2012 documented as of this encounter (statuses as of 12/19/2023) Immunizations Name Administration Dates Next Due HEP [...] on file documented as of this encounter Miscellaneous Notes * Telephone Encounter - Yasir Blake MD - 12/19/2023 4:10 PM EDT F/u lab orders created. Communicated w/ patient via MyG. documented in this encounter Plan of Treatment Upcoming Encounters Date Type Department Care Team (Late st Contact Info) Description 01/21/2024 10:40 AM EDT Office Visit Neurology [facility] [address] [place] [address] Neville Roberts, [address] [place] [address] 02/15/2024 7:30 AM EDT Office Visit Sleep Disorders Ctr [facility] [address] [place] [phone] Jazzmine Cesar CRNP [address] [place] [address] 05/23/2024 7:00 AM EST Office Visit Family Practice [facility] [address] [place] [address] Yasir Blake MD [address] [place] [address] Scheduled Orders Name Type Priority Associated Diagnoses Orde r Schedule RENAL FUNCTION PANEL Lab Routine Essential hypertension Expected: 12/19/2023 (Approximate), Expires: 12/18/2024 HEMOGLOBIN A1C Lab Routine Impaired fasting glucose Expected: 12/19/2023 (Approximate), Expires: 12/18/2024 URINALYSIS WITH MICROSCOPIC EXAM Lab Routine Essential hypertension Impaired fasting glucose Expected: 12/19/2023 (Approximate), Expires: 12/18/2024 Health Maintenance Due Date Last Done Comments HIV Screening 1986 Albumin/Creatinine Ratio 1989 Hepatitis B Vaccine (1 of 3 - 19+ 3-dose series) 1990 Cologuard 2016 Fecal Occult Blood Test 2016 Sigmoidoscopy [...] 11/18/2028 11/19/2023, 04/27, 05/11/2017, Additional history exists Colonoscopy 12/22/2032 12/22/2022 Colorectal Cancer Screening 12/22/2032 HPV (Gardasil) Vaccine Aged Out No lo [...] as of this encounter Visit Diagnoses Diagnosis Obstructive sleep apnea of adult- Primary Obstructive sleep apnea (adult) (pediatric) Essential hypertension Unspecified essential hypertension Impaired fasting glucose documented in this encounter
--- OUTSIDE RECORDS SUMMARY | 2023-12-28 04:14 | External Medical Summary | Summary of Care ---
Author Name Unknown Organization [facility] Address [address] [place] [address] Phone [phone] Care Team Providers Care Power Plant Assistant Name Role Phone Unavailable Primary Care Provider Unavailabl e Reason for Visit * Reason Comments EMG Encounter Details Date Type Department Care Team (Late st Contact Info) Description 12/15/2023 8:00 AM EDT NeuroDiagnostic Study Neurophysiology [facility] [address] [facility] [place] [address] Jayy Rodgers MD [address] [place] [address] Allergies Active Allergy Reactions Criticality Noted Date Comments Cashew Nut Oil 10/12/2005 Patient had allergic reaction to cashews Ragweed 03/15/2012 rhinitis documented as of this encounter (statuses as of 12/15/2023) Medications Medication Sig Dispensed Refills Start Date [...] as of this encounter (statuses as of 12/15/2023) Active Problems Problem Noted Date Diagnosed Date [...] as of this encounter (statuses as of 12/15/2023) Resolved Problems Problem Noted Date Diagnosed Date Resolved Date Other acne 11/11/2001 03/15/2012 Sebaceous cyst 11/11/2001 03/15/2012 Other specified disease of h air and hair follicles 11/11/2001 03/15/2012 Other allergic rhinitis 12/08/200003/27 Overview: ICD-10 update of inactive term Male infertility 03/15/2012 ABN LIVER FUNCTION STUDY Other specified forms of hearing loss 03/15/2012 documented as of this encounter (statuses as of 12/15/2023) Immunizations Name Administration Dates Next Due HEP [...] Frequency of Alcohol Consumption 2-4 times a mon th 05/18/2018 Average Number of Drinks 1 or 2 [...] on file documented as of this encounter Progress Notes * Jayy Rodgers MD - 12/15/2023 9:00 AM EDT The current study is done to evaluate a 1 year history of dysphagia characterized by difficulty manipulating food in fatigue in the posterior aspects of the pharynx and difficulty manipulating food with the tongue. There is also history of some cramping of the calf muscles Concern for generalized disorder of motor neurons was the primary reason for performing the study In light of this nerve conduction studies were done on left median ulnar peroneal and tibial motor nerves with F-waves and on the left median ulnar and radial sensory nerves and both sural nerves The sural sensory nerve action potentials are slightly low but there configurations are normal and latencies are normal and the patient has no complaints of sensory loss so this is probably an unremarkable when clinically insignificant mildly abnormal finding A more importance given clinical concerns is the fact that needle EMG done on left C5 through T1 and L3 through S1 extremity muscles, upper mid and lower thoracic paraspinals and the lateral aspect of the tongue unlikely involving genioglossus muscle fibers is all completely normal revealing specifically no fibrillation potentials, no fasciculations at rest and normal recruitment of motor unit potentials with normal morphology of these potentials in this no evidence for a generalized disorder of lower motor neurons There is also no evidence for a left brachial or lumbar plexopathy, left C5 through T1 or L3 through S1 motor radiculopathies, and no evidence for a hypoglossal motor neuropathy Jayy barahona MD documented in this encounter Plan of Treatment Upcoming Encounters Date Type Department Care Team (Late st Contact Info) Description 01/21/2024 10:40 AM EDT Office Visit Neurology [facility] [address] [place] [address] Neville Roberts, [address] [place] [address] 02/15/2024 7:30 AM EDT Office Visit Sleep Disorders Ctr [facility] [address] [place] [phone] Jazzmine Cesar CRNP [address] [place] [address] 05/23/2024 7:00 AM EST Office Visit Family Practice [facility] [address] [place] [address] Yasir Blake MD [address] [place] [address] Health Maintenance Due Date Last Done Comments HIV Screening 1986 Albumin/Creatinine Ratio 1989 Hepatitis B Vaccine (1 of 3 - 19+ 3-dose series) 1990 Cologuard 2016 Fecal Occult Blood Test 2016 Sigmoidoscopy 2016 Depression Screening 05/18/2019 05/18/2018 DTaP,Tdap,and Td Vaccines (2 - Td or Tdap) 03/24/2020 03/24/2010 Zoster Vaccines (1 of 2) 2021 COVID-19 Vaccine (1 - 2022- season) 2022 Influenza Vaccine (FLU shot) (#1) [...] as of this encounter Visit Diagnoses Diagnosis Oral phase dysphagia- Primary Dysphagia, oral phase Injury of hypoglossal nerve, unspecified laterality, subsequent encounter [S04.899D] Myalgia Mylagia and myositis, unspecified documented in this encounter
--- OUTSIDE RECORDS SUMMARY | 2023-12-28 04:14 | External Medical Summary | Summary of Care ---
Author Name Unknown Organization [facility] Address [address] [facility] [place] [address] Phone [phone] Care Team Providers Care Medical Cost Consultant Name Role Phone Unavailable Primary Care Provider Unavailabl e Encounter Details Date Type Department Care Team (Late st Contact Info) Description 12/02/2023 Orders Only Family Practice [facility] [address] [place] [address] Yasir Blake MD [address] [place] [address] Allergies Active Allergy Reactions Criticality Noted Date Comments Cashew Nut Oil 10/12/2005 Patient had allergic reaction to cashews Ragweed 03/15/2012 rhinitis documented as of this encounter (statuses as of 12/02/2023) Medications Medication Sig Dispensed Refills Start Date [...] as of this encounter (statuses as of 12/02/2023) Active Problems Problem Noted Date Diagnosed Date [...] as of this encounter (statuses as of 12/02/2023) Resolved Problems Problem Noted Date Diagnosed Date Resolved Date Other acne 11/11/2001 03/15/2012 Sebaceous cyst 11/11/2001 03/15/2012 Other specified disease of h air and hair follicles 11/11/2001 03/15/2012 Other allergic rhinitis 12/08/200003/27 Overview: ICD-10 update of inactive term Male infertility 03/15/2012 ABN LIVER FUNCTION STUDY Other specified forms of hearing loss 03/15/2012 documented as of this encounter (statuses as of 12/02/2023) Immunizations Name Administration Dates Next Due HEP [...] of Alcohol Consumption 2-4 times a mon 05/18/2018 Average Number of Drinks 1 or [...] on file documented as of this encounter Plan of Treatment Upcoming Encounters Date Type Department Care Team (Late st Contact Info) Description 12/15/2023 8:00 AM EDT NeuroDiagnostic Study Neurophysiology [facility] [address] [place] [address] Jayy Rodgers MD [address] [place] [address] 01/21/2024 10:40 AM EDT Office Visit Neurology [facility] [address] [place] [address] Neville Roberts DO [address] [place] [address] 02/15/2024 7:30 AM EDT Office Visit Sleep Disorders Ctr [facility] [address] [place] [phone] Jazzmine Cesar CRNP [address] [place] [address] 05/23/2024 7:00 AM EST Office Visit Family Practice [facility] [address] [place] [address] Yasir Blake MD [address] [place] [address] Health Maintenance Due Date Last Done Comments HIV Screening 1986 Albumin/Creatinine Ratio 1989 Hepatitis B Vaccine (1 of 3 - 19+ 3-dose series) 1990 Cologuard 2016 Fecal Occult Blood Test 2016 Sigmoidoscopy 2016 Depression Screening 05/18/2019 05/18/2018 DTaP,Tdap,and Td Vaccines (2 - Td or Tdap) 03/24/2020 03/24/2010 Zoster Vaccines (1 of 2) 2021 COVID-19 Vaccine ( - season) 2022 Influenza Vaccine (FLU shot) (#1) 2023 03/12/2018, 03/13/2017, 03/14/2016, Additional history exists GFR 11/18/2024 11/19/2023, 04/27, 05/11/2017, Additional history exists TSH 11/18/2024 11/19/2023, 04/27, 05/11/2017, Additional history exists Diabetes Screening 11/18/2026 11/19/2023, 0 05/18/2018, 05/11/2017, Additional history exists Lipid Panel 11/18/2028 11/19/2023, 04/27, 05/11/2017, Additional history exists Colonoscopy 12/01/2033 12/22/2022 Colorectal Cancer Screening 12/01/2033 HPV (Gardasil) Vaccine Aged Out No lo [...] Not on filedocumented as of this encounter Procedures Procedure Name Priority Date/Time Associated Diagnosis Comments COLONOSCOPY, OUTSIDE PROCEDURE Routine 12/22/2022 documented in this encounter Results * COLONOSCOPY, OUTSIDE PROCEDURE (12/22/2022) 12/22/2022 History Per Patient GASTRO [facility] Organization Address City/State/ZIP Co de Phone Number OUTSIDE LAB (SEE SCANNED REPORT) documented in this encounter
--- OUTSIDE RECORDS SUMMARY | 2023-12-28 04:14 | External Medical Summary | Summary of Care ---
Author Name Unknown Organization [facility] Address [address] [place] [address] Phone [phone] Care Team Providers Care Fence Machine Operator Name Role Phone Unavailable Primary Care Provider Unavailabl e Encounter Details Date Type Department Care Team (Late st Contact Info) Description 06/09/2023 Result Scan Unspecified Department <No scans attached> Allergies Active Allergy Reactions Criticality Noted Date Comments Cashew Nut Oil 10/12/2005 Patient had allergic reaction to cashews Ragweed 03/15/2012 rhinitis documented as of this encounter (statuses as of 12/02/2023) Medications No known medicationsdocumented as of this encounter (statuses as of [...] 12/15/2023 8:00 AM EDT NeuroDiagnostic Study Neurophysiology [facility] [address] [place] [address] Jayy Rodgers MD [address] [place] [address] 01/21/2024 10:40 AM EDT Office Visit Neurology [facility] [address] [place] [address] Neville Roberts DO [address] [place] [address] 02/15/2024 7:30 AM EDT Office Visit Sleep Disorders Ctr [facility] [address] [place] [phone] Jazzmine Cesar CRNP [address] [place] [address] 05/23/2024 7:00 AM EST Office Visit Family Practice [facility] [address] [place] [address] Yasir Blake MD [address] [place] [address] Health Maintenance Due Date Last Done Comments HIV Screening 1986 Albumin/Creatinine Ratio 1989 Hepatitis B Vaccine (1 of 3 - 19+ 3-dose series) 1990 Cologuard 2016 Fecal Occult Blood Test 2016 Sigmoidoscopy 2016 Depression Screening 05/18/2019 05/18/2018 DTaP,Tdap,and Td Vaccines (2 - Td or Tdap) 03/24/2020 03/24/2010 Zoster Vaccines (1 of 2) 2021 COVID-19 Vaccine ( - 2022-24 season) 2022 Influenza Vaccine (FLU shot) (#1) [...] Procedure Name Priority Date/Time Associated Diagnosis Comments RADIOLOGY SCANNED RESULT 06/09/2023 documented in this encounter Results * RADIOLOGY SCANNED RESULT (06/09/2023) 06/09/2023 No Physician Data Unknown DIAGNOSTIC RAD IOLOGY SERVICES documented in this encounter
--- OUTSIDE RECORDS SUMMARY | 2023-12-28 04:15 | External Medical Summary ---
Author Name Unknown Address Unknown Organization [id number]:[facility] [address] [place] [address] Laboratory Report Ordering Provider Test Date Status LILIANE FITZGERALD 11/19/2023 08:28:33 Final Observation Date Value Abnormality Reference (Units ) Status SYNC LEUKOCYTES IN BLOOD BY AUTOMATED COUNT 11/19/2023 08:28:33 6.82 4.00-10.80 (K/uL) Final Segs 11/19/2023 08:28:33 53.5 40.0-75.0 (%) Final Lymphs % 11/19/2023 08:28:33 36.4 18.0-42.0 (%) Final Monos 11/19/2023 08:28:33 7.9 1.0-11.0 (%) Final Eosinophils 11/19/2023 08:28:33 1.9 0.0-6.0 (%) Final Basos 11/19/2023 08:28:33 0.3 0.0-2.0 (%) Final Absolute Segs 11/19/2023 08:28:33 3.65 1.80-7.70 (K/uL) Final Lymphs, absolute 11/19/2023 08:28:33 2.48 1.00-4.80 (K/ul) Final Monos, Abs 11/19/2023 08:28:33 0.54 0.00-1.10 (K/uL) Final Eos, Abs 11/19/2023 08:28:33 0.13 0.00-0.70 (K/uL) Final Basos, Abs 11/19/2023 08:28:33 0.02 0.00-0.20 (K/uL) Final Performing Location [facility] [address] [place] [address]
--- OUTSIDE RECORDS SUMMARY | 2023-12-28 04:15 | External Medical Summary ---
Author Name Unknown Address Unknown Organization [id number] [address] - [address] [place] [address] Laboratory Report Ordering Provider Test Date Status LILIANE FITZGERALD 11/19/2023 08:28:33 Final Observation Date Value Abnormality Reference (Units ) Status WBC, Total 11/19/2023 08:28:33 6.82 4.00-10.8 0 (K/uL) Final RBC 11/19/2023 08:28:33 5.29 4.50-5.25 (M/uL) Final Hemoglobin 11/19/2023 08:28:33 17.0 Above high normal 1 4.0-16.8 (g/dL) Final HCT 11/19/2023 08:28:33 49.4 Above high normal 40 .0-48.4 (%) Final MCV 11/19/2023 08:28:33 93.4 82.0-99.5 (fL) Final MCH 11/19/2023 08:28:33 32.1 27.0-34.0 (pg) Final MCHC 11/19/2023 08:28:33 34.4 32.0-36.0 (g/dL) Final RDW 11/19/2023 08:28:33 13.5 11.5-15.5 (%) Final Platelets 11/19/2023 08:28:33 227 140-400 (K /uL) Final MPV 11/19/2023 08:28:33 10.7 6.6-11.1 ( fL) Final Performing Location [facility] [address] - [address] [place] [address]
--- OUTSIDE RECORDS SUMMARY | 2023-12-28 04:15 | External Medical Summary ---
Author Name Unknown Address Unknown Organization [id number]:[facility] [place] [address] [place] [address] Laboratory Report Ordering Provider Test Date Status LILIANE FITZGERALD 11/19/2023 08:28:33 Final Observation Date Value Abnormality Reference (Units ) Status TSH 11/19/2023 08:28:33 3.17 0.27-4.20 (uIU/mL) Final Performing Location [facility] - [address] [place] [address]
--- OUTSIDE RECORDS SUMMARY | 2023-12-28 04:15 | External Medical Summary ---
Author Name Unknown Address Unknown Organization [id number]:[facility] [address] - [address] [place] [address] Laboratory Report Ordering Provider Test Date Status LILIANE FITZGERALD 11/19/2023 08:28:33 Final Observation Date Value Abnormality Reference (Units ) Status BUN 11/19/2023 08:28:33 30 Above high normal 6-20 (mg/dL) Final Creatinine 11/19/2023 08:28:33 1.5 Above high normal 0.6-1.2 (mg/dL) Final Glomerular filtration rate/1.73 sq M.predicted [Volume Rate/Area] in Serum, Plasma or Blood by Creatinine-based formula (CKD-EPI) 11/19/2023 08:28:33 55 Below low normal >=60 (mL/min) Final eGFR is calculated based on the CKD-EPI 2020 equation. Sodium 11/19/2023 08:28:33 140 135-146 (m mol/L) Final Potassium 11/19/2023 08:28:33 4.9 3.5-5.1 (m mol/L) Final Result may be falsely elevat ed due to hemolysis. Cl 11/19/2023 08:28:33 101 98-107 (mm ol/L) Final CO2 11/19/2023 08:28:33 27 22-32 (mmo l/L) Final Anion gap 11/19/2023 08:28:33 12 7-15 (mmol /L) Final Glucose 11/19/2023 08:28:33 125 Above high normal 70 -120 (mg/dL) Final Albumin 11/19/2023 08:28:33 4.7 3.8-5.0 (g /dL) Final AST (Aspartate aminotransferase) 11/19/2023 08:28:33 28 10-50 (U/L) Fin al Result may be falsely elevat ed due to hemolysis. Alk Phos 11/19/2023 08:28:33 48 35-130 (U/ L) Final Bilirubin, Total 11/19/2023 08:28:33 0.5 <=1 .2 (mg/dL) Final Calcium 11/19/2023 08:28:33 10.0 8.4-10.2 ( mg/dL) Final Protein 11/19/2023 08:28:33 7.8 6.0-8.3 (g /dL) Final ALT (Alanine aminotransferase) 11/19/2023 08:28:33 25 10-50 (U/L) Final Performing Location [facility] [place] [address] - [address] [facility] [address]
--- OUTSIDE RECORDS SUMMARY | 2023-12-28 04:15 | External Medical Summary | Summary of Care ---
Author Name Unknown Organization [facility] Address [address] [place] [facility] [place] [place] [address] Phone [phone] Care Team Providers Care Business Services Officer Name Role Phone Unavailable Primary Care Provider Unavailabl e Reason for Visit * Reason Comments Outpatient Testing Encounter Details Date Type Department Care Team (Late st Contact Info) Description 11/19/2023 8:40 AM EDT Laboratory [facility], [facility] [address] [facility] [phone] [facility] [address] Screening for prostate cancer; Encounter for general adult medical examination with abnormal findings; Essential hypertension; Obstructive sleep apnea of adult; Hypothyroidism due to acquired atrophy of thyroid Allergies Active Allergy Reactions Criticality Noted Date [...] 11/22/2023 8:00 AM EDT Office Visit Neurology [facility] [address] [place] [address] Steffanie Cherry PA-C [address] [facility] [place] [address] 02/15/2024 7:30 AM EDT Office Visit Sleep Disorders Ctr [facility] [address] [place] [phone] Jazzmine Cesar CRNP [address] [place] [address] 05/23/2024 7:00 AM EST Office Visit Family Practice [facility] [address] [place] [address] Yasir Blake MD [address] [place] [address] Pending Results Name Type Priority Associated Diagnoses [...] atrophy of thyroid 11/19/2023 8:28 AM EDT CBC Lab Routine Obstructive sleep apnea of adult 11/19/2023 8:28 AM EDT DIFFERENTIAL, AUTOMATED Lab Routine Obstructive sleep apnea of adult 11/19/2023 8:28 AM EDT Health Maintenance Due Date Last Done Comments [...] 05/11/2017, 05/08/2016, Additional history exists COVID-19 Vaccine (2022- season) 2022 Lipid Panel 05/18/2023 05/18/2018, 04/26, [...] as of this encounter Visit Diagnoses Diagnosis Screening for prostate cancer Special screening for malignant neoplasm of prostate Encounter for general adult medical examination with abnormal findings Unspecified general medical examination Essential hypertension Unspecified essential hypertension Obstructive sleep apnea of adult Obstructive sleep apnea (adult) (pediatric) Hypothyroidism due to acquired atrophy of thyroid documented in this encounter
--- OUTSIDE RECORDS SUMMARY | 2023-12-28 04:15 | External Medical Summary ---
Author Name Unknown Address Unknown Organization [id number]:[facility] - [address] [facility] [address] [place] [address] Laboratory Report Ordering Provider Test Date Status LILIANE FITZGERALD 11/19/2023 08:28:33 Final Observation Date Value Abnormality Reference (Units ) Status Triglyceride 11/19/2023 08:28:33 186 Above high normal <=174 (mg/dL) Final Triglyceride Reference Range s (mg/dL):
<150 Acceptable
150-174 Borderline high
175-499 High
>=500 Very high Cholesterol 11/19/2023 08:28:33 234 Above high normal <200 (mg/dL) Final Total Cholesterol Reference Ranges (mg/dL):
<200 Desirable
200-239 Borderline high
>=240 High HDL 11/19/2023 08:28:33 29 Below low normal >39 (mg/dL) Final HDL Cholesterol Reference Ra nges (mg/dL):
>=60 High (Desirable)
<50 Low (Undesirable) For Females
<40 Low (Undesirable) For Males NON-HDL CHOLESTEROL 11/19/2023 08:28:33 205 Above high normal <=159 (mg/dL) Final Non-HDL Cholesterol Referenc e Range (mg/dL):
<100 Target level for high risk ASCVD patient
<130 Optimal for general population
130-159 Near optimal for general population
160-189 Borderline High
190-219 High
>=220 Very High LDL, (calculated) 11/19/2023 08:28:33 168 Above high n ormal <=129 (mg/dL) Final LDL Cholesterol Reference Ra nges (mg/dL):
<70 Target level for high risk ASCVD patient
<100 Optimal for general population
100-129 Near optimal for general population
130-159 Borderline high
160-189 High
>=190 Very high Performing Location [facility] [place] - [address] [facility] [address]
--- OUTSIDE RECORDS SUMMARY | 2023-12-28 04:15 | External Medical Summary ---
Author Name Unknown Address Unknown Organization [id number]:[facility] [place] [address] [place] [address] Laboratory Report Ordering Provider Test Date Status LILIANE FITZGERALD 11/19/2023 08:28:33 Final Observation Date Value Abnormality Reference (Units ) Status PSA 11/19/2023 08:28:33 1.07 <3.10 (ng/ mL) Final Performing Location [facility] [place] - [address] [place] [address]
[2023-12-28] MEDS ORDERED: diphenhydrAMINE Capsule 25 MG CAP PO PRN (05:10)
[2023-12-28] MEDS ORDERED: MoRPHine SULFATE 2 MG/ML CARP IV PRN (05:10)
[2023-12-28] MEDS ORDERED: oxyCODONE/ACETAMINOPHEN 5mg/325mg TAB PO PRN ×2 (05:10)
[2023-12-28] MEDS ORDERED: KETOROLAC 30 MG/ML VIAL IV PRN (05:10)
[2023-12-28] MEDS ORDERED: PROMETHAZINE 12.5 MG/50.5 ML BAG IV PRN (05:10)
[2023-12-28] MEDS ORDERED: MoRPHine SULFATE 4 MG/ML 1 ML CARP\\VIAL IV PRN (05:10)
[2023-12-28] MEDS: BUPIVACAINE/EPINEPHRINE 0.5% MPF 1:200,000 30 ML VIAL ONE (05:47)
[2023-12-28 06:14] LABS: Appearance Urine Clear (Clear); Bilirubin Urine Negative (Negative); Blood Urine Negative (Negative); Color Urine Yellow; Glucose Urine UA Negative (Negative); Ketones Urine Negative (Negative); Leukocyte Esterase Urine Negative (Negative); Nitrite Urine Negative (Negative); Protein Urine Negative (Negative); Specific Gravity Urine 1.023 (1.000-1.030); Urobilinogen Urine Negative (Negative); pH Urine 5.5 (4.5-7.5)
[2023-12-28 07:17] VITALS: TEMP 98.4
[2023-12-28] MEDS ORDERED: ACETAMINOPHEN 325 MG TAB PO PRN (09:47)
[2023-12-28 11:41] VITALS: BP 116/73; RESP 17; O2SAT 93
[2023-12-28] MEDS: ENOXAPARIN INJ 40 MG/0.4 ML SYR SQ SCH (12:31)
--- NOTE | 2023-12-28 14:07 | Discharge Summary ---
Date of Service December 28, 2023 Admission HPI Per Admitting Provider 53-year-old gentleman presents with a 1 day history of upper abdominal pain radiating to the right lower quadrant. Is been worsening all day. He did have nausea. He last ate at 2 PM. 3-year constipation. He did have chills associated with the pain. No fevers. CT Demonstrates acute appendicitis. Principal Diagnosis acute appendicitis Discharge Exam Constitutional WD/WN, vitals as above cooperative and comfortable; no acute distress and not ill appearing Respiratory normal respiratory effort; no respiratory distress, no labored breathing and no retractions Gastrointestinal (Abdomen) Inspection/Auscultation: abdomen normal to inspection and + abdominal surgical incision (c/d/i with dermabond); abdomen not distended Percussion/Palpation: + abdomen tender (mild at incision sites and RLQ on palpation) and abdomen soft; no guarding, abdomen not rigid and abdomen not firm Skin no rashes, warm and dry Psychiatric A+Ox3, euthymic affect Discharge Data Allergies Allergy/AdvReac Type Severity Reaction Status Date / Time No Known Allergies Allergy Unverified 12/28/23 01:06 Consultations 12/28/23 02:26 Consult General Surgery Stat Procedures Performed Operation Date: 12/28/23 02:50 Actual Procedures p Laparoscopic Appendectomy(Not Applicable) - Kameron Beckwith MD Ordered Studies 12/28/23 01:05 CT Abd and Pelvis [CT abd pelvis IV con only] Stat Hospital Course (1) Acute appendicitis: Plan Patient was taken to operating room for laparoscopic appendectomy by Dr. Kameron Beckwith on 12/28/2023. Patient found to have acute appendicitis without perforation or abscess. Patient transferred to med/surg floor for postoperative care. Activity and diet advanced as tolerated, pain management as needed, antiemetics as needed, and IV fluids were continued. Patient was doing well on POD # 0 and was discharged home once pain controlled, ambulating hallway, and tolerating diet. Total Time Total Time Spent Total Time Spent (In Minutes): 20 Total Time Includes: Examination of the Patient, Discharge Planning and Medication Reconciliation Discharge Plan Discharge Items Patient Disposition: Home - Self-Care Reason For Visit: POST-OP APPENDICITIS Discharge Diagnosis: acute appendicitis Activity: Per Instructions section Non-emergency contact: Primary Care Provider and Surgeon Call non-emergency contact if: you have any medication questions, your pain is not controlled, your pain is worsening, your pain is concerning for you, you have a fever, your temperature is above 101, your wound has increased redness, your wound has increased drainage and your wound pain has increased Follow-up/Referrals: Leigh Elizabeth PA-C [Physician Skid Wrapper] - PCP,NO [Primary Care Provider] - Diet: Regular Addtl Attending Provider Instructions: Post-Surgical ~Discharge Instructions Activity Recommendations: - lifting limitation: (20 pounds for 2 weeks), - exercise/sex/sports limit: (nonstrenuous for 2 weeks), - driving or machine use limit: (none for 1 week or until pain free and no longer taking narcotic pain medication, - Shower/bathe limit: (may shower beginning tomorrow, no submerging incisions underwater for 2 weeks) Diet: - Resume previous diet SPECIAL CARE INSTRUCTIONS: - May shower tomorrow morning. Let water run over area and pat dry. - Leave surgical glue on incisions this will fall off on its own. - Call the surgeon's office with any questions or concerns - - (ex. temperature higher than 101 degrees F, excessive bleeding or pain). MEDICATIONS: - Resume previous medications unless instructed otherwise by your surgeon. - May alternate extra strength Tylenol and Ibuprofen as needed for mild to moderate pain -650 mg Tylenol every 6 hours as needed. - Ibuprofen 600 mg every 6 hours as needed, take with food - Percocet 1 every 6 hours, as needed for moderate to severe pain - Recommend daily stool softener (Colace) while taking narcotic pain medication to prevent constipation or straining. Drink plenty of water daily. FOLLOW UP VISIT: - If not already scheduled, please call the office to schedule a two week follow-up appointment. Office number Pending Studies at Discharge: Yes (appendix pathology , will be reviewed at postop visit) Stand-Alone Forms: [email or web address], Smoking Cessation Medications and DC Order Prescriptions: New oxycodone-acetaminophen 5-325 mg tablet 1 tab PO Q6H PRN (Reason: pain) Qty: 10 0RF Continued levothyroxine 125 mcg tablet 125 mcg PO DAILYBB olmesartan 40 mg tablet 40 mg PO QAM hydrochlorothiazide 12.5 mg tablet 12.5 mg PO DAILY Discharge Orders: Discharge Order (Routine); Ordered 12/28/23 Ordered By: Leigh Elizabeth Admission Data Admit Date/Time: 12/28/23 04:16 Attending Provider: Kameron Beckwith Admit Provider: Kameron Beckwith Primary Care Provider: PCP,NO Other Providers: Kameron Beckwith
[2023-12-28 15:06] VITALS: PULSE 74
--- OUTSIDE RECORDS SUMMARY | 2023-12-28 15:46 | External Medical Summary | Summary of Care ---
Author Name Unknown Organization [facility] Address [address] [place] [address] Phone [phone] Care Team Providers Care Engineering Group Manager Name Role Phone Unavailable Primary Care Provider Unavailabl e Encounter Details Date Type Department Care Team (Late st Contact Info) Description 12/28/2023 Orders Only PATIENT PORTAL DO NOT DELETE THIS DEPT USED BY [place] [id number] Allergies Active Allergy Reactions Criticality Noted Date Comments Cashew Nut Oil 10/12/2005 Patient had allergic reaction to cashews Ragweed 03/15/2012 rhinitis documented as of this encounter (statuses as of 12/28/2023) Medications Medication Sig Dispensed Refills Start Date [...] as of this encounter (statuses as of 12/28/2023) Active Problems Problem Noted Date Diagnosed Date [...] as of this encounter (statuses as of 12/28/2023) Resolved Problems Problem Noted Date Diagnosed Date Resolved Date Other acne 11/11/2001 03/15/2012 Sebaceous cyst 11/11/2001 03/15/2012 Other specified disease of h air and hair follicles 11/11/2001 03/15/2012 Other allergic rhinitis 12/08/200003/27 Overview: ICD-10 update of inactive term Male infertility 03/15/2012 ABN LIVER FUNCTION STUDY Other specified forms of hearing loss 03/15/2012 documented as of this encounter (statuses as of 12/28/2023) Immunizations Name Administration Dates Next Due HEP A - Hepatitis A (Adult > 18 yrs) 04/07/2011 Seasonal Influenza, PF, 6 M & above, IM , (FluLaval or Fluzone) 03/12/2018,03/13/2017 Seasonal Influenza, Quadriva lent, No Preserve, IM 03/14/2016,03/09/2015 Seasonal Influenza, Trivalen t, (IIV3), with Preserv, (Fluzone) 03/26/2014,03/20/2013,03/15/2012, 010 TDAP, Age 7 and older, [...] 01/21/2024 10:40 AM EDT Office Visit [facility] [address] [place] [address] Neville Roberts DO [address] [facility] [place] [address] 02/15/2024 7:30 AM EDT Office Visit [facility] [address] [id number] Jazzmine Cesar CRNP [address] [place] [address] 05/23/2024 7:00 AM EST Office Visit Family Practice [facility] [address] [place] [address] Yasir Blake MD [address] [place] [id number] Health Maintenance Due Date Last Done Comments HIV Screening 1986 Albumin/Creatinine Ratio 1989 Hepatitis B Vaccine (1 of 3 - 19+ 3-dose series) 1990 Cologuard 2016 Fecal Occult Blood Test 2016 Sigmoidoscopy 2016 Depression Screening 05/18/2019 05/18/2018 DTap/Tdap Vaccines (2 - Td or Tdap) 03/24/2020 03/24/2010 Zoster Vaccines (1 of 2) 2021 COVID-19 Vaccine (1 - season) 2023 Influenza Vaccine (FLU shot) (#1) 2023 03/12/2018, [...]
--- NOTE | 2023-12-28 16:00 | Electrocardiogram Report ---
Test Reason : Blood Pressure : */* mmHG Vent. Rate : 57 BPM Atrial Rate : 57 BPM P-R Int : 178 ms QRS Dur : 84 ms QT Int : 416 ms P-R-T Axes : 72 61 55 degrees QTcB Int : 404 ms Sinus bradycardia Otherwise normal ECG No previous ECGs available Confirmed by Dawit Moreno ([id number]) on 12/28/2023 4:00:12 PM Referred By: REFERRED SELF Confirmed By: Dawit Moreno
--- NOTE | 2023-12-29 06:31 | Anesthesiology Progress Note ---
Date of Service December 28, 2023 Anesthesia Post Procedure Vital Signs Vital Signs: Temp Pulse Pulse Resp BP Pulse Ox O2 Del Method 12/28/23 14:59 98.4 F 73 74 17 116/73 93 12/28/23 11:40 98.4 F 73 17 116/73 93 Room Air 12/28/23 07:16 98.4 F 75 15 116/74 92 Room Air Pain Intensity Right Upper Abdomen: Pain Intensity: 0 Transfer of Care Handoff Completed per policy Notes Mental Status: alert / awake / arousable and participated in evaluation Patient Amnestic to Procedure: Yes Nausea / Vomiting: adequately controlled Pain: adequately controlled Airway Patency, RR, SpO2: stable & adequate BP & HR: stable & adequate Hydration State: stable & adequate Anesthetic Complications: no major complications apparent and Pt Satisfied with anesthetic care
== END 2023-12-28 15:08 | disposition home or self-care (01) ==
LOC: ED 23:10 → OR 12-28 03:15 → 3E 12-28 03:15 → OR 12-28 04:26